=== PATIENT | male | born 1955 | race Caucasian/White ===

== ENCOUNTER 2017-02-27 13:54 | Observation (INO) | payer OTHER ==
--- NOTE | 2017-02-27 14:12 | EDPHY ---
H & P Smoking Status: Never smoked Time Seen by Provider: 02/27/17 14:04 HPI/ROS: Chief complaint. Dizzy, head injury after fall HPI. 61-year-old male with history of Meniere's disease and recurrent vertigo was walking down the street today after having lunch and says it felt like I was stepping and the air and fell to the ground striking his head. He had no loss of consciousness. No preceding chest discomfort trouble breathing or abdominal pain. He did not have dizziness preceding his fall but when lying on the ground he developed is typical vertigo. He sustained abrasion to his head. Does not have neck pain. He feels that this is somewhat different than his usual dizziness. ROS Constitutional. no fever/chills, no weakness Eyes. no problems with vision ENT. no sore throat, no nasal drainage Cardiovascular. no chest pain Respiratory. no shortness of breath, no cough Abdominal. no abdominal pain, no nausea/vomiting, no diarrhea . no problems urinating MS. no calf pain/swelling, no neck/back pain, no joint pain Skin. no rash Lymph. no swollen glands Neuro. Dizziness (Abelino Salmon) Past Medical/Surgical History: Vertigo/Meniere's disease and knee surgery (Abelino Salmon) Social History: , nonsmoker, no alcohol (Abelino Salmon) Physical Exam: General Appearance: Alert well-developed male mild distress vital signs stable Eyes: Pupils equal round and reactive. No nystagmus. ENT, tympanic membranes are normal. Oropharynx normal. Abrasion to scalp Respiratory: There are no retractions, lungs are clear to auscultation. Cardiovascular: Regular rate and rhythm. Gastrointestinal: Abdomen is soft and nontender, no masses, bowel sounds normal. Neurological: Awake and alert, sensory and motor exams grossly normal. Cranial nerves are normal. Speech is normal. Iwjasj-hu-rbhl is normal qdhx-vs-zymz is normal. There is no pronator drift Skin: Warm and dry, no rashes. Musculoskeletal: Neck is supple nontender. Extremities symmetrical, full range of motion. Psychiatric: Patient is oriented X 3, there is no agitation. (Abelino Salmon) Constitutional: Initial Vital Signs Temperature (C) 36.4 C 02/27/17 13:59 Heart Rate 61 02/27/17 13:59 Respiratory Rate 16 02/27/17 13:59 Blood Pressure 124/60 H 02/27/17 13:59 O2 Sat (%) 98 02/27/17 13:59 O2 Delivery Mode Room Air Allergies/Adverse Reactions: No Known Allergies Allergy (Unverified 02/27/17 13:58) Home Medications: Medication Instructions Recorded Meclizine HCl 02/27/17 Medical Decision Making - Diagnostics EKG Interpretation: EKG interpreted by me shows normal sinus rhythm normal interval and axis. QRS is normal there is no significant ST elevation or depression. No arrhythmia. Rate is 60 (Abelino Salmon) EKG shows normal sinus rhythm, normal rate, normal axis, normal intervals. There are no ST or T-wave abnormalities. EKG is normal as interpreted by me. (Cassia Hall) Imaging: Imaging Impressions Head CT 02/27/17 14:31 Impression: 1. No acute intracranial findings. If symptoms persist and clinical suspicion warrants, consider MRI. 2. Diffuse cerebral atrophy with scattered periventricular and subcortical low attenuation consistent with chronic microvascular ischemic gliosis. Findings discussed with Cassia Hall 02/27/2017 at 15:07. Procedures: IV normal saline, monitor. Zofran IV. Meclizine by mouth (Abelino Salmon) ED Course/Re-evaluation: 1500: The patient is signed out to me by Dr. Salmon at change of shift. The patient is awaiting CT results. Head CT: Please refer the dictated report by Dr. Amos. No acute disease noted. I rechecked the patient on numerous occasions. Patient denies vertigo or headache. I rechecked the patient and he stated his symptoms had resolved. He denies any headache or neck pain. He denied weakness numbness or incoordination. NEURO/PSYCH: Higher functions: Alert and Oriented x3. Normal speech and cognition. Normal mood and affect. Cranial nerves: Normal as tested. Cerebellar: Patient has mild difficulty with heel to springer. Good finger to nose. The patient has poor rapid alternating movement. Negative Romberg. Slightly unsteady gait. Patient is unable to stand on a single foot. He states this is abnormal for him. Peripheral exam: Normal motor exam. Normal sensation. I discussed the findings with the patient and his . I answered all her questions. I feel the patient needs further imaging. MRI was ordered. I discussed the case with Dr. Dora Hernandez from the Hospital service. She will admit the patient observation. Neurology was also contacted for further evaluation. (Cassia Hall) Differential Diagnosis: My differential includes but is not limited to ischemic CVA, hemorrhagic CVA, dissection, aneurysm, electrolyte abnormality, sugar abnormality, ACS, acute PA (Cassia Hall) Care Turn Over: Care turned over to Dr. Hall at 3:00 p.m. (Abelino Salmon) - Data Points Laboratory Results: Laboratory Results 02/27/17 14:25 02/27/17 14:25 02/27/17 02/27/17 14:25 14:25 WBC 5.98 10^3/uL 10^3/uL (3.80-9.50) RBC 5.03 10^6/uL 10^6/uL (4.40-6.38) Hgb 15.3 g/dL g/dL (13.7-17.5) Hct 44.2 % % (40.0-51.0) MCV 87.9 fL fL (81.5-99.8) MCH 30.4 pg pg (27.9-34.1) MCHC 34.6 g/dL g/dL (32.4-36.7) RDW 12.2 % % (11.5-15.2) Plt Count 208 10^3/uL 10^3/uL (150-400) MPV 10.8 fL fL (8.7-11.7) Neut % (Auto) 63.4 % % (39.3-74.2) Lymph % (Auto) 23.4 % % (15.0-45.0) [place] % (Auto) 10.4 % % (4.5-13.0) Eos % (Auto) 1.5 % % (0.6-7.6) Baso % (Auto) 1.0 % % (0.3-1.7) Nucleat RBC Rel Count 0.0 % % (0.0-0.2) Absolute Neuts (auto) 3.79 10^3/uL 10^3/uL (1.70-6.50) Absolute Lymphs (auto) 1.40 10^3/uL 10^3/uL (1.00-3.00) Absolute Monos (auto) 0.62 10^3/uL 10^3/uL (0.30-0.80) Absolute Eos (auto) 0.09 10^3/uL 10^3/uL (0.03-0.40) Absolute Basos (auto) 0.06 10^3/uL 10^3/uL (0.02-0.10) Absolute Nucleated RBC 0.00 10^3/uL 10^3/uL (0-0.01) Immature Gran % 0.3 % % (0.0-1.1) Immature Gran # 0.02 10^3/uL 10^3/uL (0.00-0.10) Sodium 137 mEq/L mEq/L (134-144) Potassium 3.8 mEq/L mEq/L (3.5-5.2) Chloride 101 mEq/L mEq/L (97-110) Carbon Dioxide 27 mEq/l mEq/l (22-31) Anion Gap 9 mEq/L mEq/L (8-16) BUN 21 mg/dL mg/dL (7-23) Creatinine 1.0 mg/dL mg/dL (0.7-1.3) Estimated GFR > 60 Glucose 115 mg/dL H mg/dL (70-100) Calcium 9.4 mg/dL mg/dL (8.5-10.4) Troponin I < 0.012 ng/mL ng/mL (0-0.034) Medications Given: Discontinued Medications Sodium Chloride (Ns) 1,000 mls @ 0 mls/hr IV ONCE ONE PRN Reason: Wide Open Stop: 02/27/17 14:34 Last Admin: 02/27/17 14:42 Dose: 1,000 mls Meclizine HCl (Meclizine Hcl) 25 mg PO EDNOW ONE Stop: 02/27/17 14:34 Last Admin: 02/27/17 14:42 Dose: Not Given Ondansetron HCl (Zofran) 4 mg IVP EDNOW ONE Stop: 02/27/17 14:34 Last Admin: 02/27/17 14:42 Dose: 4 mg Departure - Departure Disposition: [facility] Clinical Impression: Dizziness Head contusion Qualifiers: Encounter type: initial encounter Contusion of head detail: scalp Qualified Code(s): S00.03XA - Contusion of scalp, initial encounter Fall Qualifiers: Encounter type: initial encounter Qualified Code(s): W19.XXXA - Unspecified fall, initial encounter Condition: Good Referrals: Fletcher Fowler MD [Primary Care Provider] - As per Instructions
--- NOTE | 2017-02-27 14:15 | CPEKG ---
Heart Rate: 60 RR Interval: 1000 P-R Interval: 180 QRSD Interval: 98 QT Interval: 452 QTC Interval: 452 P Ecru: 68 QRS Ecru: 67 T Wave Ecru: 50 EKG Severity - NORMAL ECG - EKG Impression: SINUS RHYTHM Electronically Signed By: Abelino Salmon 27-Feb-2017 15:20:55
[2017-02-27] MEDS ORDERED: MECLIZINE HCL 25 MG TAB PO ONE (14:33)
[2017-02-27] MEDS ORDERED: NS 1,000 ML IV ONE (14:33)
[2017-02-27] MEDS ORDERED: ONDANSETRON 4 MG/2 ML VIAL IVP ONE (14:33)
[2017-02-27 14:49] LABS: % IMMATURE GRANULYOCYTES 0.3 % (0.0-1.1); ABSOLUTE IMMATURE GRANULOCYTES 0.02 10^3/uL (0.00-0.10); ADD DIFF? NO; ADD MORPH? NO; ADD SCAN? NO; ATYPICAL LYMPHOCYTE FLAG 10 (0-99); FRAGMENT RBC FLAG 0 (0-99); HEMATOCRIT 44.2 % (40.0-51.0); HEMOGLOBIN 15.3 g/dL (13.7-17.5); LEFT SHIFT FLG 0 (0-99); LIPEMIA HEMOLYSIS FLAG 90 (0-99); MEAN CELL HEMOGLOBIN 30.4 pg (27.9-34.1); MEAN CELL HEMOGLOBIN CONCENTR. 34.6 g/dL (32.4-36.7); MEAN CELL VOLUME 87.9 fL (81.5-99.8); MEAN PLATELET VOLUME 10.8 fL (8.7-11.7); PLATELET CLUMPS FLAG 30 (0-99); PLATELET COUNT 208 10^3/uL (150-400); RED BLOOD CELL COUNT 5.03 10^6/uL (4.40-6.38); RED CELL DISTRIBUTION WIDTH 12.2 % (11.5-15.2)
[2017-02-27 14:50] LABS: ANION GAP 9 mEq/L (8-16); CALCIUM 9.4 mg/dL (8.5-10.4); CARBON DIOXIDE 27 mEq/l (22-31); CHLORIDE 101 mEq/L (97-110); GLOMERULAR FILTRATION RATE > 60; GLUCOSE 115 mg/dL (70-100); POTASSIUM 3.8 mEq/L (3.5-5.2); SODIUM 137 mEq/L (134-144)
[2017-02-27 15:01] LABS: TROPONIN I < 0.012 ng/mL (0-0.034)
[2017-02-27] MEDS ORDERED: PROMETHAZINE HCL 25 MG TAB PO PRN (18:13)
[2017-02-27] MEDS ORDERED: ONDANSETRON 4 MG/2 ML VIAL IVP PRN (18:13)
[2017-02-27] MEDS ORDERED: ONDANSETRON DISINTEGRATING 4 MG TAB PO PRN (18:13)
[2017-02-27] MEDS ORDERED: ACETAMINOPHEN 325 MG TAB PO PRN (18:13)
[2017-02-27] MEDS ORDERED: LORazepam 0.5 MG TAB PO PRN (18:13)
[2017-02-27] MEDS ORDERED: oxyCODONE IR 5 MG TAB PO PRN (18:13)
[2017-02-27] MEDS ORDERED: MECLIZINE HCL 25 MG TAB PO PRN (18:16)
--- NOTE | 2017-02-27 21:55 | GHP ---
[f rep st] HISTORY AND PHYSICAL DATE OF ADMISSION: 02/27/2017 CHIEF COMPLAINT: Vertigo and fall. HISTORY OF PRESENT ILLNESS: This is a 61-year-old man who has a past medical history of Meniere syn drome that has been present for about the last 2 years who presents status post a fall after having what he describes as a bout of vertigo. The patient notes this initially started back in 2014 and s nito then he has had several bouts of vertiginous symptoms often with falling, as well as nausea and vomiting that have happened intermittently since initial presentation in October 2015. He has bee n seen by ENT and noted to have associated hearing loss. He notes when these bouts occur it is as i f he has been on a boat during stormy weather. He walks as if he is intoxicated and often will fall down. This is often followed by profound nausea and vomiting. He has been taking meclizine and fo llowing a very strict diet, as well as doing yoga and this has improved his symptoms to where he has bouts less frequently. He describes that most of these episodes last somewhere between 10 minutes and 2 hours rarely longer than that. He describes an episode today that he feels is different than his usual episodes of vertigo and for that reason, he came to the ER for further evaluation. He not es that he had been feeling quite well and was walking on [address] when out of nowhere he sudden ly fell, hit his head on a pole on the way down, and then developed nausea and his usual vertigo lik e symptoms. He notes that the main thing that was different is that he had no warning whatsoever an d he usually has the morning prior to the vertigo starting. He is certain that he did not lose cons ciousness and also feels that he was never confused, although he does note that after these episodes he feels extremely exhausted and wiped out. Given that this occurred on [address] [employer], many people presented shortly after his fall including a nurse who is a stroke nurse. After she spoke with him she felt that his symptoms were concerning and not consistent with his prior vertigo symptoms and en couraged him to be seen in the emergency department. At the time of my evaluation, he feels fine. He is walking without dizziness. He is eating. He is not nauseous. He denies any chest pain, eith er now or preceding this episode or in the past. He has had no fevers or chills. When asked why he fell, he describes it as being in a situation where it is like he has been in the airplane crash an d he cannot figure out which way is up or down. He has never seen a neurologist. PAST MEDICAL HISTORY: Includes Meniere syndrome with recurrent vertigo. PAST SURGICAL HISTORY: Knee surgery. FAMILY HISTORY: This was reviewed and noncontributory. SOCIAL HISTORY: Patient is . He is a nonsmoker, nondrinker, nondrug user. He is very activ e, rides his bike, and does yoga. 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 REVIEW OF SYSTEMS: Ten-point review of systems obtained and negative, except as per HPI. MEDICATIONS: Include meclizine p.r.n. and Zofran p.r.n. ALLERGIES: No known drug allergies. PHYSICAL EXAMINATION: VITAL SIGNS: BP 126/73, heart rate 49, respiratory rate 18, O2 sat is 94% on room air, temperature is 36.4. GENERAL APPEARANCE: This is a well-developed, well-nourished man. He is awake and alert. He is in no acute distress. EYES: Anicteric. HEENT: Oropharynx clear. CARDIOVASCULAR: Bradycardic, regular, no MRG. PULMONARY: CTA bilaterally. Normal work of breathi ng. ABDOMEN: Soft, nontender, nondistended. EXTREMITIES: No clubbing, cyanosis, or edema. SKIN: Warm, dry, and well perfused. NEURO/PSYCH: Oriented and appropriate. Cranial nerves are intact. His gait is normal. Strength and sensation are intact throughout. CLINICAL DATA: Labs reviewed significant for a completely normal CBC, chemistry is normal except fo r a glucose of 115, troponin is less than 0.012. Head CT personally reviewed and interpreted as normal. Brain MRI personally reviewed and interpreted as likewise normal. EKG personally reviewed and interpreted shows sinus rhythm, rate of 60. ASSESSMENT AND PLAN: This is a 61-year-old man with a past history of Meniere syndrome with recurre nt vertigo presenting with fall and vertigo symptoms. 1. Vertigo. Again, this was with an associated fall but without loss of consciousness per the jackie ent. The patient's evaluation in the ER was concerning for deficits on exam of his coordination and given that this presentation was significantly different from his prior bouts of vertigo, it was fe lt most prudent to have him brought in for overnight observation. Neurology has been consulted and will see the patient in the morning. This does not sound like a near syncopal event though the loss of any sort of preceding symptoms certainly raises this question. He is quite bradycardic on exam and he will be monitored on telemetry with serial troponins and EKGs performed. Also obtain an echo cardiogram in the morning. Other consideration would be for a seizure with something like a drop at tack. Again Neurology has been consulted. 2. Hyperglycemia without history of diabetes. We will obtain a hemoglobin A1c for further evaluati on. 3. Bradycardia. As per above, the patient is quite bradycardic though he notes that he is very act jenifer and denies really any kind of cardiac complaints. Given his fall today without any kind of prec eding morning and being somewhat different than his prior presentations, I do feel somewhat obliged to work him up for possible syncope versus near-syncope. Again, monitoring on tele, serial EKGs and troponins. An echocardiogram in the morning. 4. Disposition, observation status. Suspect he will need less than 48 hours stay for evaluation an d management of above. 5. Patient is new to my care. Old records reviewed, summarized as per HPI and past medical history . Care plan reviewed with the ER physician, including plans for overnight observation. /[id number]/MODL
[2017-02-28 00:40] LABS: HEMOGLOBIN A1C 5.5 % (4.0-6.0)
--- NOTE | 2017-02-28 08:47 | CPEKG ---
Heart Rate: 53 RR Interval: 1132 P-R Interval: 188 QRSD Interval: 96 QT Interval: 452 QTC Interval: 425 P Moville: 58 QRS Moville: 63 T Wave Moville: 51 EKG Severity - NORMAL ECG - EKG Impression: SINUS RHYTHM Electronically Signed By: Tashi Kent 28-Feb-2017 18:16:45
--- NOTE | 2017-02-28 13:30 | ECHO ---
[id number] + + [address] : : [place] [address] : : [phone] + + Adult Echocardiographic Report + --------+ :Name: DANITZA TUTTLE FStudy Date: 02/28/2017 07:39 AM : : Hospital Admission Number: [id number] Locat ion: 215: :: 1955 Gender: Male Height: 77 in : :Age: 61 yrs Race: WH Weight: 184 l b : :Reason For Study: Near syncope : : BSA: 2.2 mete rs2 : + --------+ MMode/2D Measurements \T\ Calculations IVSd: 0.87 cm LVIDd: 5.3 cm FS: 32.4 % Ao root diam: LVPWd: 0.75 cm LVIDs: 3.6 cm EDV(Teich): 3.9 cm 134.5 ml LA dimension: ESV(Teich): 3.5 cm 53.5 ml EF(Teich): 60.2 % LVLd ap4: 8.1 cm SV(MOD-sp4): EDV(MOD-sp4): 61.0 ml 90.0 ml LVLs ap4: 6.7 cm ESV(MOD-sp4): 29.0 ml EF(MOD-sp4): 67.8 % Normal Measurement Values: + + :LVIDd (3.5-5.7cm) IVSd (0.6-1.1cm) LVPWd (0.6-1.1cm) Aortic Root (2.0-3.7cm)Left Atrium (1.5-4.0cm): :LV Vol(d) (76-115ml) LV Vol(s) (29-48ml) Ejec Fraction (50-65%)PV Keven (0.6- 1.2m/s) TV Keven (0.4-1.0m/s) : :MV E Keven (0.8-1.0m/s)MV A Keven (0.3-1.0m/s)LVOT Keven (0.7-1.2m/s) Asc Ao Keven ( 0.9-1.8m/s) : + + Doppler Measurements \T\ Calculations MV E max keven: 81.9 cm/sec Ao V2 max: 120.8 cm/sec TR max keven: 228.0 cm/sec MV A max keven: 65.2 cm/sec Ao max P.8 mmHg TR max P.8 mmHg MV E/A: 1.3 RAP systole: 5.0 mmHg RVSP(TR): 25.8 mmHg Left Ventricle The left ventricle is normal in size and function. There is normal left ventricular wall thickness. Left ventricular systolic function is normal. Ejection Fraction = 65-70%. No regional wall motion abnormalities noted. Right Ventricle The right ventricle is normal in size and function. Atria The left atrial size is normal. Right atrial size is normal. The interatrial septum is intact with no evidence for an atrial septal defect. Mitral Valve The mitral valve is normal in structure and function. There is no evidence of mitral valve prolapse. There is no mitral valve stenosis. There is mild mitral regurgitation. Tricuspid Valve Normal tricuspid valve. There is mild tricuspid regurgitation. Aortic Valve The aortic valve is trileaflet. The aortic valve opens well. There is no aortic stenosis. There is no aortic insufficiency. Pulmonic Valve The pulmonic valve is normal in structure and function. There is no pulmonic valvular regurgitation. Great Vessels The aortic root is normal size. Pericardium/Pleural There is no pericardial effusion. Conclusion A complete two-dimensional transthoracic echocardiogram was performed (2D, M-mode, Doppler and color flow Doppler). The left ventricle is normal in size and function. Left ventricular systolic function is normal. Ejection Fraction = 65-70%. No regional wall motion abnormalities noted. Valvular appearance is normal. There is mild mitral regurgitation. There is mild tricuspid regurgitation. Final Reading Physician: Jacy Brown signed on 02/28/2017 01:29 PM Ordering Physician: Dora Hernandez Performed By: Monse Mays, JULISSACS
[2017-02-28 15:39] VITALS: BP 99/62; PULSE 51; RESP 16; TEMP 97.5; O2SAT 94
--- NOTE | 2017-02-28 17:07 | GCON ---
[f rep st] CONSULTATION NEUROLOGY CONSULT DATE OF CONSULTATION: 02/28/2017 REFERRING PHYSICIAN: Dora Hernandez MD CHIEF COMPLAINT: Vertigo. BILLING INFORMATION: 70 minutes floor time today; over 50% in counseling with the patient and his w tate on speakerphone, along with coordination of care. 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 He began having vertiginous episodes around 1 -1/2 years ago. These are fairly stereotyped in that he gets a sudden onset up and down vertigo, as if there is an earthquake happening, or he is on a turbulent body of water on a ship, followed by s ignificant nausea and vomiting and sometimes diarrhea. These symptoms may wax and wane from minutes to hours and then spontaneously resolve. He thinks he has had 10-20 episodes in the last 18 months . He has had constant tinnitus for 10 years and hearing loss as well. They are triggered by salty or rich foods and alleviated by avoiding salt, exercise, and doing balance practice such as yoga. His last few episodes he thinks were triggered by increasing rich or salty foods. He saw ENT, Dr. Jarrell Bolanos, and was diagnosed with Meniere disease in January of 2016, and was put on diuretics initia lly, but then discontinued as he was able to manage with diet and exercise. As I said, 2 of his mos t recent episodes were perhaps triggered by him being more liberal in his diet related to travel for his work. The reason for admission is he was [place] [employer] yesterday and had brunch, and had an atypical meal consisting of eggs, sausage, and home fries that were quite salty. The night before h e did have a anitha with salt on the rim. He was then walking on [address] when he had fairly sudden onset of loss of balance, fell, striking his forehead with the onset of vertigo occurring al most simultaneously. Typically, the vertigo precedes loss of balance by 2-3 minutes. He then becam e nauseous and vomited up his lunch thereafter, and the symptoms quickly resolved, and he was back t o baseline. He was seen by a bystander who happened to be a stroke nurse and advised him to come to the emergency department. He had ultimately a brain MRI which was entirely normal, along with an E CG which showed normal sinus rhythm. Echocardiogram was also performed and showed an ejection fract ion of 65% to 70%. LV function was normal. Left atrial size was normal. No septal defect. Tropon ins were normal. There were no significant electrolyte disturbances. The patient was tested for be nign positional vertigo previously and negative. There is no family history of hemiplegic migraines . He denies significant palpitations. REVIEW OF SYSTEMS: A 10-point review of systems was done and only pertinent to the HPI. PAST MEDICAL HISTORY: Meniere disease, diagnosed in January of 2016. FAMILY HISTORY: Their daughter has migraines. No family history of hemiplegic migraine. SOCIAL HISTORY: Patient is . He is a director of a nonprofit. MEDICATIONS: Meclizine p.r.n. ALLERGIES: No known drug allergies. PHYSICAL EXAM: VITAL SIGNS: Blood pressure 126/73, heart rate is 59 and regular, temperature 36.7, respirations 16. GENERAL: In no acute distress, Very pleasant. NEUROLOGICAL: Higher mental func tions: He is awake, alert, lucid. No aphasia, no obvious cognitive abnormalities. Cranial nerve e xam normal 2 through 7, and 12. Motor exam: He has normal strength and tone throughout. No tremor s. Sensory exam: Normal to light touch in all 4 extremities. Coordination: Gait is normal. Romb erg is negative. Yxchsp-sekn-cvyyke is normal bilaterally. In summary, nonfocal exam. IMPRESSION/PLAN: 1. Episodic vertigo. 2. Outside diagnosis of Meniere disease. Overall, his history certainly may be consistent with Meniere disease, as he is having episodes trig gered by lifestyle factors, including sodium in his diet. He will follow up with Dr. Bolanos after d hao to discuss the pros and cons of diuretic therapy. He will be mindful of his sodium going f orward as well. We did discuss the fairly sudden onset of this most recent episode as its most unus ual feature compared to the other 10-20 episodes. Overall, it was morphologically similar outside o f the rise time of the symptoms. Because of his age and this atypical feature, I think it would be jj to follow up with [facility] for ECG monitoring, either 30 days or an implantable cardiac mo nitor to capture an event. I think the probability of an arrhythmia is low, based on the entire his tory and the data we have already gathered. He was counseled as such. However, he is agreeable to follow up with [facility]. I do not think these represent seizures of any type. He has not ever lost consciousness or had alteration of awareness with these events. We also discussed another possible differential diagnosis, namely episodic ataxia type 1 or type 2, that can cause episodes of imbalance and another similar symptoms. His age of onset is somewhat aty pical. We discussed that genetic testing can be done for this condition. If, down the line, there continues to be uncertainty around the diagnosis, I have given him my contact information to follow up with me as an outpatient to discuss genetic testing. The treatment of that condition tends to be daily medication, such as Diamox. We discussed that as well. No further recommendations now. He is reassured by his normal brain MRI and exam. He will discharge from the hospital later today. Thank you for this consultation. /[id number]/MODL
--- NOTE | 2017-02-28 21:47 | GDS ---
[f rep st] DISCHARGE SUMMARY DISCHARGE DIAGNOSES: 1. Vertigo precipitating a fall. 2. History of Meniere disease. CONSULTANTS: Dr. Shashank Alejandro, Neurology. IMAGING STUDIES AND PROCEDURES: 1. Head CT, February 27, 2017, showed diffuse cerebral atrophy with scattered periventricular and subc ortical low attenuation consistent with chronic microvascular ischemic gliosis. No acute intracrani al findings. 2. Brain MRI, February 27, 2017, was completely normal. 3. Echocardiogram, February 28, 2017, showed normal left ventricular systolic function with an ejectio n fraction of 55-70%. No regional wall motion abnormalities. Mild mitral regurgitation. HISTORY: For details please see dictated history and physical dated February 27, 2017. In brief, the patient is a 61-year-old male, who has been previously diagnosed with Meniere disease by an ENT phys ician, who presented to the Emergency Department after an episode of severe vertigo causing him to f all to the ground, striking his head. He was admitted to the hospital for further evaluation. HOSPITAL COURSE: The patient was admitted to the telemetry unit. Imaging was performed, as above, which was essentially normal. His lab workup was normal with negative troponins x3 and a reassuring EKG. Echocardiogram showed no evidence of cardiogenic source. Neurology consult was obtained and it was suggested that his event was likely consistent with an episode Meniere disease and may have b een precipitated by high sodium intake in his diet leading up to the event. He was noted to be mild ly bradycardic with a heart rate in the 40s to 50s. 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 However, consideration was given to sick sinus syndrome or a possible bradycardic ev ent provoking his sudden fall. Therefore, it is recommended that he follow up at the [facility] for a 30-day event monitor. The overall suspicion for malignant arrhythmia is low. He did n ot lose consciousness. Neurology discussed with the patient the initiation of diuretic therapy, tho ugh he prefers to move forward with avoiding sodium in his diet, and he will follow up with Neurolog y as needed. DISPOSITION: Patient is discharged home in stable condition. FOLLOWUP: 1. [facility] to arrange for a cardiac event monitor in the outpatient setting. 2. Dr. Shashank Alejandro, Neurology. 3. Dr. Fletcher Fowler, primary care provider. DISCHARGE MEDICATIONS: Please see [facility] for completed, updated outpatient medication list. The patient was given a refill of Zofran 4 mg p.o. q.8 hours p.r.n. (#30, no refills) and he will co ntinue meclizine as needed. /[id number]/MODL
== END 2017-02-28 17:34 | disposition home or self-care (01) ==
LOC: F2W 17:57
PROVIDERS: ADMIT Internal Medicine; ATTEND Internal Medicine
DX: R42 Dizziness and giddiness (principal); R73.9 Hyperglycemia, unspecified; H81.09 Meniere's disease, unspecified ear
CPT/HCPCS: 70450; 70551; 92523; 93005; 93306; 97162; 97165; G0378; 96374; J2405